=== PATIENT | female | born 1950 | race Caucasian/White ===

== ENCOUNTER 2017-02-02 15:33 | Observation (INO) | payer MEDICARE, BC ==
[2017-02-02] MEDS ORDERED: Acetaminophen 500 MG Tab PO ONE (16:15)
--- NOTE | 2017-02-02 16:22 | EDM.PDOC ---
ED HISTORY OF PRESENT ILLNESS - General Chief Complaint: Cardiovascular Problem Stated Complaint: SYNCOPAL EPISODE/ H/A Time Seen by Provider: 02/02/17 16:05 Source: Reports: Patient, Family History Limitations: Reports: No limitations - History of Present Illness INITIAL COMMENTS - FREE TEXT/NARRATIVE: 67 yo previously healthy female presents with a few episodes since about 1 pm today of syncope and near syncope associated with confusion. Has had a mild ORTIZ all day today. Was up until 4 am today and slept late today. No recent illness. No facial droop or slurred speech. No vomiting, diarrhea, or bleeding. Remembers some of what was going on during these spells. Talked non-sense when she did talk during or after these spells. Is now back to normal. Symptom Onset Date: 02/02/17 Symptom Onset Time: 13:00 Timing/Duration: Reports: Intermittent, Sudden onset Severity: moderate Location, General: Reports: head Quality: Reports: Ache (mild) Improves with: Reports: None Worsens with: Reports: None Context, General: Reports: Other (Got less sleep than normal last night. 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: Neurological History: Reports: Migraines - Infectious Disease History Infectious Disease History: Reports: Chicken pox - Past Surgical History GI Surgical History: Reports: Appendectomy Female Surgical History: Reports: Hysterectomy Musculoskeletal Surgical History: Reports: Carpal tunnel, Other (see below) Other Musculoskeletal Surgeries/Procedures:: bilat carpal tunnel, R hand surgery , R bunionectomy & hammer toe, Dermatological Surgical History: Reports: Other (see below) Social & Family History - Tobacco Use Smoking Status *Q: Former Smoker Years of Tobacco use: 15 - Recreational Drug Use Recreational Drug Use: No ED ROS GENERAL - Review of Systems Review Of Systems: See Below Constitutional: Reports: malaise, weakness HEENT: Reports: No symptoms Respiratory: Reports: No Symptoms Cardiovascular: Reports: No symptoms GI/Abdominal: Reports: No symptoms : Reports: no symptoms Musculoskeletal: Reports: no symptoms Skin: Reports: no symptoms Neurological: Reports: Headache (mild), Syncope, Change in Speech (confused speech transiently during spells) ED EXAM, GENERAL - Physical Exam Exam: See Below Exam Limited By: No limitations General Appearance: alert, WD/WN, no apparent distress Eye Exam: bilateral eye: EOMI, normal inspection Ears: normal external exam, normal canal, hearing grossly normal Ear Exam: bilateral ear: auricle normal, canal normal Nose: normal inspection, normal mucosa, no blood Throat/Mouth: Normal inspection, Normal lips, Normal teeth, Normal oropharynx, Normal voice, No airway compromise Head: atraumatic, normocephalic Neck: normal inspection, supple, non-tender Respiratory/Chest: no respiratory distress, lungs clear, normal breath sounds, no accessory muscle use Cardiovascular: regular rate, rhythm, no edema GI/Abdominal: normal bowel sounds, soft, non tender, no distention Back Exam: normal inspection Extremities: normal inspection, normal range of motion, non-tender, no pedal edema Neurological: alert, oriented, CN II-XII intact, normal cognition, no motor/ sensory deficits Psychiatric: normal affect, normal mood Skin Exam: Warm, Dry, Intact, Normal color, No rash Lymphatic: no adenopathy EKG INTERPRETATION EKG Date: 02/02/17 Time: 15:35 Rhythm: NSR Rate (beats/min): 84 Converse: normal P-wave: present QRS: normal ST-T: normal QT: normal Comparison: NA - no prior EKG Course - Vital Signs Text/Narrative:: Orthostats-negative Head CT scan-negative Last Recorded V/S: Last Vital Signs Temp 36.6 C 02/02/17 15:35 Pulse 88 02/02/17 15:35 Resp 20 02/02/17 15:35 BP 134/66 02/02/17 15:35 Pulse Ox - Orders/Labs/Meds Orders: Active Orders 24 hr Category Date Time Status EKG Documentation Completion [RC] ASDIRECTED Care 02/02/17 16:16 Active Orthostatic Vital Signs [RC] ASDIRECTED Care 02/02/17 16:05 Active Head wo Cont [CT] Stat Exams 02/02/17 16:15 Taken TROPONIN I [CHEM] Stat Lab 02/02/17 16:30 Received UA W/MICROSCOPIC [URIN] Stat Lab 02/02/17 17:03 Ordered EKG 12 Lead [EK] Routine Ther 02/02/17 16:16 Ordered Labs: Laboratory Tests 02/02/17 02/02/17 Range/Units 16:30 16:30 WBC 4.8 (4.5-12.0) X10-3/uL RBC 3.96 (3.23-5.20) x10(6)uL Hgb 12.7 (11.5-15.5) g/dL Hct 37.7 (30.0-51.3) % MCV 95.3 (80-96) fL MCH 32.1 (27.7-33.6) pg MCHC 33.7 (32.2-35.4) g/dL RDW 13.1 (11.5-15.5) % Plt Count 273 (125-369) X10(3)uL Sodium 137 (135-145) mmol/L Potassium 4.1 (3.5-5.3) mmol/L Chloride 105 (100-110) mmol/L Carbon Dioxide 23 (23-29) mmol/L BUN 17 (8-23) mg/dL Creatinine 0.5 L (0.6-1.3) mg/dL Est Cr Clr Drug Dosing 96.86 mL/min Estimated GFR (MDRD) > 60 (>60) BUN/Creatinine Ratio 34.0 H (9-20) Glucose 107 (80-116) mg/dL Calcium 8.3 L (8.6-10.2) mg/dL Meds: Medications Discontinued Medications Generic Name Dose Route Start Last Admin Trade Name Freq PRN Reason Stop Dose Admin Acetaminophen 1,000 mg 02/02/17 16:15 Tylenol Extra Strength PO 02/02/17 16:16 ONETIME ONE Departure - Departure Time of Disposition: 17:15 Disposition: Refer to Observation Condition: fair Clinical Impression: Syncope Qualifiers: Syncope type: unspecified Qualified Code(s): R55 - Syncope and collapse Forms: ED Department Discharge - My Orders Last 24 Hours: My Active Orders 02/02/17 16:05 Orthostatic Vital Signs [RC] ASDIRECTED 02/02/17 16:15 Head wo Cont [CT] Stat 02/02/17 16:16 EKG Documentation Completion [RC] ASDIRECTED EKG 12 Lead [EK] Routine 02/02/17 16:30 TROPONIN I [CHEM] Stat 02/02/17 17:03 UA W/MICROSCOPIC [URIN] Stat - Assessment/Plan Last 24 Hours: My Active Orders 02/02/17 16:05 Orthostatic Vital Signs [RC] ASDIRECTED 02/02/17 16:15 Head wo Cont [CT] Stat 02/02/17 16:16 EKG Documentation Completion [RC] ASDIRECTED EKG 12 Lead [EK] Routine 02/02/17 16:30 TROPONIN I [CHEM] Stat 02/02/17 17:03 UA W/MICROSCOPIC [URIN] Stat
[2017-02-02] MEDS ORDERED: Ibuprofen 400 MG Tab PO PRN (17:07)
[2017-02-02] MEDS ORDERED: Sodium Chloride 0.9% 10 ML Syringe FLUSH PRN ×2 (17:07→18:56)
[2017-02-02] MEDS ORDERED: Magnesium Hydroxide 400 MG/5 ML Susp 30 ML Cup PO PRN (17:07)
[2017-02-02] MEDS ORDERED: Ondansetron 4 MG Tab.DIS PO PRN (17:07)
[2017-02-02] MEDS ORDERED: Enoxaparin 30 MG/0.3 ML Syringe SUBCUT SCH (17:15)
[2017-02-02] MEDS ORDERED: Acetaminophen 325 MG Tab PO PRN (23:45)
[2017-02-02] MEDS ORDERED: Acetaminophen 325 MG Tab ONE (23:56)
[2017-02-03 01:20] VITALS: BP 110/47
[2017-02-03] MEDS ORDERED: Pneumococcal Polyvalent-23 Vaccine 0.5 ML SDV IM ONE (09:00)
--- NOTE | 2017-02-03 09:39 | PCM.HP ---
H&P History of Present Illness - General Date of Service: 02/03/17 Admit Problem/Dx: Admission Diagnosis/Problem Admission Diagnosis/Problem Syncope Source of Information: Patient, Old records History Limitations: Reports: No limitations - History of Present Illness Initial Comments - Free Text/Narative: 67-year-old female admitted last night because of syncopal events. She reports passing out twice he did with her witnessing 3 different episodes. It lasted 10-20 minutes each, associated with confusion and speech disturbance afterwards. This has never happened before although she has fainted at least 2 times in the past once was when she had to inject herself. Had mild headache which came to the ER her memory had cleared. Overnight she slept well with no recurrent symptoms. The denies witnessing any seizures, and there was no stool or urine incontinence, nor was there any tongue biting. She complains of mild headache afterwards but that is resolved. The night before she had only slept 2 hours, due to anxiety, and what she now believes was stress; after meeting 20-year-old granddaughter for the first time! She does have a previous history of anxiety and has seen Dr Garg, usually takes Xanax on a very rare occasion. She denies any weakness one side nausea vomiting drooping difficulty with swallowing. 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 OB/BYN History: hyst Musculoskeletal History: Reports: Osteoporosis Neurological History: Reports: Migraines - Infectious Disease History Infectious Disease History: Reports: Chicken pox - Past Surgical History Cardiovascular Surgical History: Reports: Other (see below) Other Cardiovascular Surgeries/Procedures: vein stripping and ligation GI Surgical History: Reports: Appendectomy Female Surgical History: Reports: Hysterectomy Musculoskeletal Surgical History: Reports: Carpal tunnel, Shoulder surgery, Other (see below) Other Musculoskeletal Surgeries/Procedures:: bilat carpal tunnel, R hand surgery , R bunionectomy & hammer toe, Social & Family History - Tobacco Use Smoking Status *Q: Former Smoker Years of Tobacco use: 15 Packs/Tins Daily: 1 Used Tobacco, but Quit: Yes Month Tobacco Last Used: 1994 Second Hand Smoke Exposure: No - Caffeine Use Caffeine Use: Reports: Coffee, Soda - Alcohol Use Days Per Week of Alcohol Use: 3 Number of Drinks Per Day: 1 Total Drinks Per Week: 3 - Recreational Drug Use Recreational Drug Use: No H&P Review of Systems - Review of Systems: Review Of Systems: ROS reveals no pertinent complaints other than HPI. Exam - Exam Exam: See Below - Vital Signs Vital Signs: Last Vital Signs Temp 97.6 F 02/02/17 23:30 Pulse 79 02/02/17 23:30 Resp 16 02/02/17 23:30 BP 110/47 L 02/02/17 23:30 Pulse Ox 97 02/02/17 23:30 Orthostatic Blood Pressure [ 114/64 Standing] Orthostatic Blood Pressure [ 120/68 Sitting] Orthostatic Blood Pressure [ 130/76 Supine] Weight: 76.476 kg - Exam General: alert, oriented, 4 HEENT: PERRLA, Hearing intact, Mucosa moist & pink, Nares patent, Normal nasal septum, Posterior pharynx clear, Conjunctiva clear, EOMI, EACs clear, TMs clear Neck: supple, trachea midline, 2 Lungs: Clear to auscultation, Normal respiratory effort Cardiovascular: regular rate, regular rhythm Abdomen: normal bowel sounds, soft (Female) Exam: Deferred Rectal (Female) Exam: Deferred Back Exam: normal inspection, full range of motion, NT Extremities: 3, normal inspection, 10 Skin: warm, dry, intact Neurological: cranial nerves intact, reflexes equal bilateral Neuro Extensive - Mental Status: alert, oriented x3, normal mood/affect, normal cognition Neuro Extensive - Motor, Sensory, Reflexes: CN II-XII intact, normal gait, normal reflexes Psychiatric: alert, normal affect, normal mood - Patient Data Lab Results last 24 hrs: Laboratory Results - last 24 hr 02/03/17 Range/Units 06:15 Troponin I < 0.01 L (0.02-0.06) NG/ML Result Diagrams: 02/02/17 16:30 02/02/17 16:30 EKG INTERPRETATION Rhythm: NSR *Q Meaningful Use (ADM) - VTE *Q VTE Criteria *Q: - Stroke *Q Stroke Criteria *Q: - AMI *Q AMI Criteria *Q: - Problem List (1) Syncope SNOMED Code(s): 833905469 ICD Code: R55 - SYNCOPE AND COLLAPSE Status: Acute Current Visit: Yes Qualifiers: Syncope type: unspecified Qualified Code(s): R55 - Syncope and collapse (2) Reaction, stress, acute SNOMED Code(s): 22610190 ICD Code: F43.0 - ACUTE STRESS REACTION Status: Acute Current Visit: Yes Problem List Initiated/Reviewed/Updated: Yes Orders Last 24hrs: Active Orders 24 hr Category Date Time Status Carotid Comp [US] Routine Exams 02/02/17 17:24 Stop Req Carotid Comp [US] Routine Exams 02/03/17 08:00 Taken Acetaminophen [Tylenol] Med 02/02/17 23:45 Active 650 mg PO Q4H PRN Enoxaparin [Lovenox] Med 02/03/17 18:00 Active 40 mg SUBCUT DAILY@1800 Medication Orders Acetaminophen (Tylenol) 650 mg PO Q4H PRN PRN Reason: Headache Last Admin: 02/02/17 23:58 Dose: 650 mg Enoxaparin Sodium (Lovenox) 40 mg SUBCUT DAILY@1800 NANCY Ibuprofen (Motrin) 400 mg PO Q6H PRN PRN Reason: Pain (mild 1-3) Magnesium Hydroxide (Milk Of Magnesia) 30 ml PO Q12H PRN PRN Reason: Constipation Ondansetron HCl (Zofran Odt) 4 mg PO Q6H PRN PRN Reason: nausea, able to take PO Sodium Chloride (Saline Flush) 10 ml FLUSH ASDIRECTED PRN PRN Reason: Keep Vein Open Last Admin: 02/02/17 18:59 Dose: 10 ml Assessment/Plan Comment:: I 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 EKG and telemetry monitoring was negative overnight she has had a negative troponin this morning. She feels fine with no symptoms. I feel that she could go home today and see her PCP on Tuesday,unless there are any recurrent symptoms,in which case she should return to the emergency room.
[2017-02-03] MEDS ORDERED: Enoxaparin 40 MG/0.4 ML Syringe SUBCUT SCH (18:00)
--- NOTE | 2017-02-04 11:54 | US ---
INDICATION: Syncope. DUPLEX ULTRASOUND, CEREBRAL ARTERIES: Utilizing 2-D real time, duplex Doppler spectral analysis, and color flow imaging, examination of the cerebral arteries revealed antegrade vertebral artery flow bilaterally. ICA/CCA ratios were 1.39 and 1.23 cm per second on the right and left respectively, with relatively minimal plaque which is partly calcified. Examination was technically difficult due to the position of the bifurcation high in the neck. IMPRESSION: 1) 16-49% stenosis both ICAs with the degree of stenosis likely in the lower portion of that range and no definite ulcerations identified. 2) Antegrade vertebral artery flow bilaterally. MTDD
== END 2017-02-03 10:32 | disposition home or self-care (01) ==
LOC: FB.ED 15:33 → FB.MS 17:07
PROVIDERS: ADMIT Emergency Medicine; ATTEND Family Medicine
DX: R55 Syncope and collapse (principal); F43.0 Acute stress reaction; Z88.0 Allergy status to penicillin; Z79.899 Other long term (current) drug therapy; Z79.82 Long term (current) use of aspirin; Z90.49 Acquired absence of other specified parts of digestive tract; Z90.710 Acquired absence of both cervix and uterus; Z98.890 Other specified postprocedural states; Z87.891 Personal history of nicotine dependence; Z23 Encounter for immunization
CPT/HCPCS: 36415; 70450; 80048; 81001; 83735; 84100; 84484; 85027; 93005; 93880; 96372; 99285; A9270; G0009; G0378; J1650; J7050; 90732; 99219

== ENCOUNTER 2017-06-30 13:26 | Emergency (ER) | payer MEDICARE, BC ==
[2017-06-30] MEDS ORDERED: Sodium Chloride 0.9% 10 ML Syringe FLUSH PRN (14:11)
--- NOTE | 2017-06-30 14:18 | EDM.PDOC ---
ED HPI GENERAL MEDICAL PROBLEM - General Chief Complaint: Neuro Symptoms/Deficits Stated Complaint: MEMORY TROUBLE Time Seen by Provider: 06/30/17 13:55 Source of Information: Reports: Patient, Family, Old Records History Limitations: Reports: No Limitations - History of Present Illness INITIAL COMMENTS - FREE TEXT/NARRATIVE: 67 yo female presents with intermittent episodes of disorientation today that began upon awakening. She was out in the hot sun working yesterday, but felt well when she went to bed last night. Has not had a ORTIZ or any focal neuro deficits. No hx of seizures. Had spells of syncope last January for which she had a head CT, carotid US, and blood work all of which was normal. She was observed overnight without a recurrence and has been syncope-free since. Her drove her to the ER after about her 3rd episode today. He states that from onset to full resolution is about 20 minutes. Started diclofenac 50 mg bid about 10 days ago for wrist pain with benefit. Took alprazolam 2 days ago and Fiorinal yesterday(for a ORTIZ). Denies alcohol consumption. 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: Other (see below) (none) - Related Data Allergies Allergy/AdvReac Type Severity Reaction Status Date / Time Penicillins Allergy Dizziness Verified 06/30/17 13:44 Home Meds: Home Meds Teriparatide [Forteo] 20 mcg SQ DAILY 02/02/17 [History] Diclofenac Sodium [Voltaren] 50 mg PO DAILY 06/30/17 [History] SUMAtriptan [Imitrex] 50 mg PO ASDIRECTED PRN 06/30/17 [History] 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 History 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 OB/BYN History: hyst Musculoskeletal History: Reports: Osteoporosis Neurological History: Reports: Migraines, Other (See Below) Other Neuro History: Episodes of short-term memory loss Psychiatric History: Reports: None Endocrine/Metabolic History: Reports: None Hematologic History: Reports: None Immunologic History: Reports: None Oncologic (Cancer) History: Reports: None - Infectious Disease History Infectious Disease History: Reports: Chicken Pox - Past Surgical History Head Surgeries/Procedures: Reports: None Cardiovascular Surgical History: Reports: Other (See Below) GI Surgical History: Reports: Appendectomy Female Surgical History: Reports: Hysterectomy Musculoskeletal Surgical History: Reports: Carpal Tunnel, Shoulder Surgery, Other (See Below) Dermatological Surgical History: Reports: Other (See Below) Social & Family History - Family History Family Medical History: Noncontributory - Tobacco Use Smoking Status *Q: Never Smoker Years of Tobacco use: 15 Packs/Tins Daily: 1 Used Tobacco, but Quit: Yes Month Tobacco Last Used: 1994 Second Hand Smoke Exposure: No - Caffeine Use Caffeine Use: Reports: Coffee, Soda - Alcohol Use Days Per Week of Alcohol Use: 3 Number of Drinks Per Day: 1 Total Drinks Per Week: 3 - Recreational Drug Use Recreational Drug Use: No ED ROS GENERAL - Review of Systems Review Of Systems: See Below Constitutional: Reports: No Symptoms HEENT: Reports: No Symptoms Respiratory: Reports: No Symptoms Cardiovascular: Reports: No Symptoms Endocrine: Reports: No Symptoms GI/Abdominal: Reports: No Symptoms : Reports: No Symptoms Musculoskeletal: Reports: No Symptoms Skin: Reports: No Symptoms Neurological: Reports: Confusion (intermittent spells of this.), Syncope (not since 01/31.). Denies: Dizziness, Headache, Numbness, Paresthesia, Seizure Psychiatric: Reports: No Symptoms Hematologic/Lymphatic: Reports: No Symptoms ED EXAM, NEURO - Physical Exam Exam: See Below Exam Limited By: No Limitations General Appearance: Alert, WD/WN, No Apparent Distress Eye Exam: Bilateral Eye: EOMI, Normal Inspection, PERRL Ears: Normal External Exam, Normal Canal, Hearing Grossly Normal, Normal TMs Nose: Normal Inspection, Normal Mucosa, No Blood Throat/Mouth: Normal Inspection, Normal Lips, Normal Teeth, Normal Oropharynx, Normal Voice, No Airway Compromise Head Exam: Atraumatic, Normocephalic Neck: Normal Inspection, Supple, Non-Tender Respiratory/Chest: No Respiratory Distress, Lungs Clear, Normal Breath Sounds, No Accessory Muscle Use Cardiovascular: Regular Rate, Rhythm, No Edema GI/Abdominal: Normal Bowel Sounds, Soft, Non-Tender, No Distention Neurological: Alert, Normal Mood/Affect, Normal Dorsiflexion, CN II-XII Intact, Normal Plantar Flexion, Normal Gait, Normal Reflexes, No Motor/Sensory Deficits , Oriented x 3. No: Difficulty Walking Back Exam: Normal Inspection. No: CVA Tenderness (R), CVA Tenderness (L) Extremities: Normal Inspection, Normal Range of Motion, Non-Tender, No Pedal Edema Psychiatric: Normal Affect, Normal Mood Skin Exam: Warm, Dry, Intact, Normal Color, No Rash Course - Vital Signs Text/Narrative:: Discussed case with [place] Neurologist on-call. Last Recorded V/S: Last Vital Signs Temp 36.6 C 06/30/17 13:35 Pulse 72 06/30/17 14:15 Resp 15 06/30/17 14:15 BP 100/69 06/30/17 14:15 Pulse Ox 99 06/30/17 14:15 - Orders/Labs/Meds Orders: Active Orders 24 hr Category Date Time Status Cardiac Monitoring [RC] .As Directed Care 06/30/17 14:00 Active Brain w wo Cont [MR] Stat Exams 06/30/17 14:10 Taken ASPARTATE AMNIOTRANSFERASE,AST [CHEM] Stat Lab 06/30/17 15:37 Ordered Gadobutrol [Gadavist] Med 06/30/17 14:45 Active 7.5 ml IV . DIRECTED Sodium Chloride 0.9% [Saline Flush] Med 06/30/17 14:11 Active 10 ml FLUSH ASDIRECTED PRN Saline Lock Insert [OM.PC] Routine Oth 06/30/17 14:11 Ordered Medication Orders Gadobutrol (Gadavist) 7.5 ml IV . DIRECTED [facility] Last Admin: 06/30/17 15:19 Dose: 7.5 ml Sodium Chloride (Saline Flush) 10 ml FLUSH ASDIRECTED PRN PRN Reason: Keep Vein Open Last Admin: 06/30/17 14:23 Dose: 10 ml Labs: Laboratory Tests 06/30/17 06/30/17 06/30/17 Range/Units 13:40 13:40 14:00 WBC 5.2 (4.5-12.0) X10-3/uL RBC 4.20 (3.23-5.20) x10(6)uL Hgb 13.5 (11.5-15.5) g/dL Hct 40.4 (30.0-51.3) % MCV 96.1 H (80-96) fL MCH 32.0 (27.7-33.6) pg MCHC 33.3 (32.2-35.4) g/dL RDW 12.2 (11.5-15.5) % Plt Count 285 (125-369) X10(3)uL Sodium (135-145) mmol/L Potassium (3.5-5.3) mmol/L Chloride (100-110) mmol/L Carbon Dioxide (23-29) mmol/L BUN (8-23) mg/dL Creatinine (0.6-1.3) mg/dL Est Cr Clr Drug Dosing Estimated GFR (MDRD) (>60) BUN/Creatinine Ratio (9-20) Glucose (80-116) mg/dL Calcium (8.6-10.2) mg/dL Troponin I (0.02-0.06) NG/ML Urine Color Yellow (YELLOW) Urine Appearance Clear (CLEAR) Urine pH 8.0 H (5.0-6.5) Ur Specific [place] 1.010 (1.010-1.025) Urine Protein Negative (NEGATIVE) mg/dL Urine Glucose (UA) Normal (NEGATIVE) mg/dL Urine Ketones Negative (NEGATIVE) mg/dL Urine Occult Blood Negative (NEGATIVE) Urine Nitrite Negative (NEGATIVE) Urine Bilirubin Negative (NEGATIVE) Urine Urobilinogen Normal (NEGATIVE) mg/dL Ur Leukocyte Esterase Negative (NEGATIVE) Urine RBC 0-5 (0) Urine WBC 0-5 (0) Ur Squamous Epith Cells Occasional (NS,R,O) Urine Bacteria Few H (NS) Urine Opiates Screen Positive H (NEGATIVE) Ur Oxycodone Screen Negative (NEGATIVE) Ur Propoxyphene Screen Negative (NEGATIVE) Ur Barbituates Screen Positive H (NEGATIVE) Ur Tricyclics Screen Negative (NEGATIVE) Ur Phencyclidine Scrn Negative (NEGATIVE) Ur Amphetamine Screen Negative (NEGATIVE) Urine MDMA Screen Negative (NEGATIVE) U Benzodiazepines Scrn Positive H (NEGATIVE) U Cocaine Metab Screen Negative (NEGATIVE) U Marijuana (THC) Screen Negative (NEGATIVE) Ethyl Alcohol (<0.01) % 06/30/17 06/30/17 06/30/17 Range/Units 14:00 14:00 14:30 WBC (4.5-12.0) X10-3/uL RBC (3.23-5.20) x10(6)uL Hgb (11.5-15.5) g/dL Hct (30.0-51.3) % MCV (80-96) fL MCH (27.7-33.6) pg MCHC (32.2-35.4) g/dL RDW (11.5-15.5) % Plt Count (125-369) X10(3)uL Sodium 138 (135-145) mmol/L Potassium 4.3 (3.5-5.3) mmol/L Chloride 106 (100-110) mmol/L Carbon Dioxide 24 (23-29) mmol/L BUN 15 (8-23) mg/dL Creatinine 0.6 (0.6-1.3) mg/dL Est Cr Clr Drug Dosing TNP Estimated GFR (MDRD) > 60 (>60) BUN/Creatinine Ratio 25.0 H (9-20) Glucose 105 (80-116) mg/dL Calcium 8.7 (8.6-10.2) mg/dL Troponin I < 0.01 L (0.02-0.06) NG/ML Urine Color (YELLOW) Urine Appearance (CLEAR) Urine pH (5.0-6.5) Ur Specific [place] (1.010-1.025) Urine Protein (NEGATIVE) mg/dL Urine Glucose (UA) (NEGATIVE) mg/dL Urine Ketones (NEGATIVE) mg/dL Urine Occult Blood (NEGATIVE) Urine Nitrite (NEGATIVE) Urine Bilirubin (NEGATIVE) Urine Urobilinogen (NEGATIVE) mg/dL Ur Leukocyte Esterase (NEGATIVE) Urine RBC (0) Urine WBC (0) Ur Squamous Epith Cells (NS,R,O) Urine Bacteria (NS) Urine Opiates Screen (NEGATIVE) Ur Oxycodone Screen (NEGATIVE) Ur Propoxyphene Screen (NEGATIVE) Ur Barbituates Screen (NEGATIVE) Ur Tricyclics Screen (NEGATIVE) Ur Phencyclidine Scrn (NEGATIVE) Ur Amphetamine Screen (NEGATIVE) Urine MDMA Screen (NEGATIVE) U Benzodiazepines Scrn (NEGATIVE) U Cocaine Metab Screen (NEGATIVE) U Marijuana (THC) Screen (NEGATIVE) Ethyl Alcohol 0.10 H (<0.01) % Meds: Medications Generic Name Dose Route Start Last Admin Trade Name Freq PRN Reason Stop Dose Admin Gadobutrol 7.5 ml 06/30/17 14:45 06/30/17 15:19 Gadavist IV 7.5 ml . DIRECTED NANCY Administration Sodium Chloride 10 ml 06/30/17 14:11 06/30/17 14:23 Saline Flush FLUSH 10 ml ASDIRECTED PRN Administration Keep Vein Open Discontinued Medications Generic Name Dose Route Start Last Admin Trade Name Darioq PRN Reason Stop Dose Admin Aspirin 324 mg 06/30/17 14:20 06/30/17 14:26 Aspirin PO 06/30/17 14:21 324 mg ONETIME ONE Administration Departure - Departure Time of Disposition: 15:51 Disposition: Home, Self-Care 01 Condition: Fair Clinical Impression: Disorientation - Discharge Information Referrals: Adan Garg MD [Primary Care Provider] - Forms: ED Department Discharge - My Orders Last 24 Hours: My Active Orders 06/30/17 14:00 Cardiac Monitoring [RC] .As Directed 06/30/17 14:10 Brain w wo Cont [MR] Stat 06/30/17 14:11 Sodium Chloride 0.9% [Saline Flush] 10 ml FLUSH ASDIRECTED PRN Saline Lock Insert [OM.PC] Routine 06/30/17 14:45 Gadobutrol [Gadavist] 7.5 ml IV . DIRECTED 06/30/17 15:37 ASPARTATE AMNIOTRANSFERASE,AST [CHEM] Stat - Assessment/Plan Last 24 Hours: My Active Orders 06/30/17 14:00 Cardiac Monitoring [RC] .As Directed 06/30/17 14:10 Brain w wo Cont [MR] Stat 06/30/17 14:11 Sodium Chloride 0.9% [Saline Flush] 10 ml FLUSH ASDIRECTED PRN Saline Lock Insert [OM.PC] Routine 06/30/17 14:45 Gadobutrol [Gadavist] 7.5 ml IV . DIRECTED 06/30/17 15:37 ASPARTATE AMNIOTRANSFERASE,AST [CHEM] Stat
[2017-06-30] MEDS ORDERED: Aspirin 81 MG Tab.Chew PO ONE (14:20)
[2017-06-30] MEDS ORDERED: Gadobutrol 7.5 mMOL/7.5 ML SDV IV SCH (14:45)
[2017-06-30 17:41] VITALS: BP 123/64
== END 2017-06-30 17:12 ==
LOC: FB.ED 13:26
DX: R41.0 Disorientation, unspecified (principal); Z88.0 Allergy status to penicillin; Z79.899 Other long term (current) drug therapy; Z90.49 Acquired absence of other specified parts of digestive tract; Z90.710 Acquired absence of both cervix and uterus
CPT/HCPCS: 36415; 70553; 80048; 80305; 81001; 84450; 84484; 85027; 99285; A9270; A9585; G0480; J7050; 99284

== ENCOUNTER 2017-09-17 21:15 | Emergency (ER) | payer MEDICARE, BC ==
[2017-09-17] MEDS ORDERED: Hydrocortisone/Neomycin/Polymyxin B Ophth Susp 7.5 ML Bottle ONE (21:47)
[2017-09-17 22:18] VITALS: BP 112/82
--- NOTE | 2017-09-18 00:47 | ER ---
DATE SEEN: 09/17/2017 TIME SEEN: 2200 hours. REASON FOR VISIT: Check right eye. HISTORY OF PRESENT ILLNESS: This is a 67-year-old female who went to bed yesterday, took out the left contact lens, but forgot the right. She feels irritated on that right side and feels it may be still stuck in there. Denies any visual disturbance, headache, or nausea vomiting. ALLERGIES: Prednisone. REVIEW OF SYSTEMS: All other systems negative. MEDICATIONS: Reviewed. PHYSICAL EXAMINATION: GENERAL: She is nontoxic. VITAL SIGNS: Blood pressure and temperature within normal limits: EYES: External eyes are normal. Eyelids normal. The right sclera, conjunctiva, and pupils are normal. The anterior chamber is normal. I did not see any foreign bodies, redness, or drainage. Extraocular movements are intact. IMPRESSION: Right eye irritation. PLAN: I used a Q-tip to clean and examine all the fornices of the eye and sclera. I did not notice any foreign body. I will send her home on some eyedrops Cortisporin to use 2 drops 2 times a day into that eye and will follow up with Dr. Stiles on Tuesday. Return to the ED with any worsening symptoms. /[id number] TERESA/SALMA
== END 2017-09-17 21:58 | disposition home or self-care (01) ==
LOC: FB.ED 21:15
DX: H57.8 Other specified disorders of eye and adnexa (principal); Z88.8 Allergy status to other drugs, medicaments and biological substances
CPT/HCPCS: 99283; A9270

== ENCOUNTER 2022-03-04 07:45 | Day surgery (SDC) | payer MEDICARE, BC ==
[~2022-03-04 07:45] MED LIST: Lactated Ringers 1,000 ML IV SCH; Sodium Chloride 0.9% 10 ML Syringe FLUSH PRN
[2022-03-04] MEDS ORDERED: Propofol 200 MG/20 ML SDV IV ONE (07:46)
[2022-03-04] MEDS ORDERED: Midazolam 1 MG/ML 2 ML SDV IV ONE (07:46)
[2022-03-04] MEDS ORDERED: Ondansetron 4 MG/2 ML SDV IVPUSH ONE (07:46)
[2022-03-04 11:26] VITALS: BP 124/62; PULSE 86
== END 2022-03-04 11:25 | disposition home or self-care (01) ==
LOC: FB.SDS 07:45
PROVIDERS: ATTEND Surgery
DX: K57.30 Diverticulosis of large intestine without perforation or abscess without bleeding (principal); K56.2 Volvulus; K56.690 Other partial intestinal obstruction; F41.9 Anxiety disorder, unspecified; K21.9 Gastro-esophageal reflux disease without esophagitis; G43.909 Migraine, unspecified, not intractable, without status migrainosus; M19.90 Unspecified osteoarthritis, unspecified site; Z88.0 Allergy status to penicillin; Z90.49 Acquired absence of other specified parts of digestive tract; Z87.891 Personal history of nicotine dependence; Z79.82 Long term (current) use of aspirin; Z79.899 Other long term (current) drug therapy
CPT/HCPCS: 00811-QZ; 74019; J2250; J2405; J2704; J7120